=== PATIENT | male | born 1980 | race Caucasian/White ===

== ENCOUNTER → 2018-07-26 | Outpatient (CLI) | payer OTHER ==
[2015-05-04 09:35] VITALS: BP 162/85
[~2018-07-26] MED LIST: DICL75TA PO; LISI1TAB3 PO; PSYL0.5215 PO; REGADENOSON 0.4 MG/5 ML DISP.SYRIN. IV ONE; WHEA1POW5 PO
--- NOTE | 2018-07-27 09:50 | CARD ---
MR#: [id number] Date of Study: 07/27/2018 Ordering Physician: YANCI BLACKWELL, Referring Physician: YANCI BLACKWELL Tech: Nupur Bell RDCS APPROVED REPORT EXAM: Two-dimensional and M-mode echocardiogram with Doppler and color Doppler. Other Information Quality : Technically LimitedHR: 65bpm Rhythm : NSRTechnically limited study due to body habitus. INDICATION Dyspnea 2D DIMENSIONS RVDd4.0 (2.9-3.5cm)Left Atrium(2D)4.5 (1.6-4.0cm) Aortic Root(2D)3.0 (2.0-3.7cm)LVOT Diameter2.1 (1.8-2.4cm) PWd1.4 (0.7-1.1cm)IVSs2.1 (0.8-1.2cm) FS (%) 29.6 %PWs1.2 (0.8-1.2cm) SV94.3 mlLVEF(%)55.0 (>50%) M-Mode DIMENSIONS Left Atrium(MM)4.44 (2.5-4.0cm)Aortic Root3.56 (2.2-3.7cm) Aortic Valve AoV Peak Jesus.124.7cm/sAoV VTI25.1cm AO Peak GR.6.2mmHgLVOT Peak Jesus.108.7cm/s LVOT VTI 22.71cmAO Mean GR.4mmHg LEAH (VMAX)2.95lu2VWZ (VTI)3.00cm2 Mitral Valve MV E Pydbravy82.9cm/sMV DECEL DJJF530ea MV A Tqjdyina10.2cm/sMV SVE09yl E/A Ratio1.7MVA (PHT)2.84cm2 TDI E/Lateral E'5.5E/Medial E'6.2 Pulmonary Valve PV Peak Pwvginpb161.8cm/sPV Peak Grad.5mmHg Tricuspid Valve TR P. Rhgbsken444tu/sRAP NKRGPOCA1kyNh TR Peak Gr.89lgVyTSHY20ooRg Pulmonary Vein S1 Wolabhbm07.4cm/sD2 Iajzgmzf34.8cm/s LEFT VENTRICLE The left ventricle is normal size. There is moderate concentric left ventricular hypertrophy. Left ve ntricle systolic function is normal. The Ejection Fraction is 55-60%. There is normal LV segmental wa ll motion. The left ventricular diastolic function and filling is normal for age. RIGHT VENTRICLE The right ventricle is normal size. There is normal right ventricular wall thickness. The right ventr icular systolic function is normal. ATRIA The left atrium is mildly dilated. The right atrium is moderately dilated. The interatrial septum is intact with no evidence for an atrial septal defect or patent foramen ovale as noted on 2-D or Dopple r imaging. AORTIC VALVE The aortic valve is normal in structure and function. The aortic valve is trileaflet. Doppler and Col or Flow revealed no significant aortic regurgitation. There is no significant aortic valvular stenosi s. MITRAL VALVE The mitral valve is normal in structure and function. There is no evidence of mitral valve prolapse. There is no mitral valve stenosis. Doppler and Color-flow revealed trace mitral regurgitation. TRICUSPID VALVE The tricuspid valve is normal in structure and function. Doppler and Color Flow revealed trace tricus pid regurgitation. The PA pressure was estimated at 23 mmHg. There is no tricuspid valve prolapse or vegetation. There is no tricuspid valve stenosis. PULMONIC VALVE Pulmonic valve not well visualized. Doppler and Color Flow revealed no pulmonic valvular regurgitatio n. There is no pulmonic valvular stenosis. GREAT VESSELS The aortic root is normal in size. The ascending aorta is normal in size. The IVC is normal in size a nd collapses >50% with inspiration. PERICARDIAL EFFUSION There is no evidence of significant pericardial effusion. Critical Notification Critical Value: No <Conclusion> Left ventricle systolic function is normal. The Ejection Fraction is 55-60%. There is normal LV segmental wall motion. The left atrium is mildly dilated. Trace mitral regurgitation. Trace tricuspid regurgitation. The PA pressure was estimated at 23 mmHg. There is no evidence of significant pericardial effusion. Signed by : Yanci Blackwell, Electronically Approved : 07/27/2018 09:48:54
--- NOTE | 2018-07-27 11:26 | RAD ---
MR#: [id number] Date of Study: 07/27/2018 Ordering Physician: YANCI PEÑALOZA, Referring Physician: JESSICA NGUYEN Tech: Harper Vazquez RT (R) (N)ALEX Lopez, TONY (R) (N) APPROVED REPORT Test Type: Pharmacological Stress Nurse/Tech: [place] HOWARD Test Indications: Dyspnea with exertion Cardiac History: HTN, Smoker, Family Hx Medications: See EMR Medical History: See EMR Resting ECG: SR Resting Heart Rate: 74 bpm Resting Blood Pressure: 132/70mmHg Pretest Chest Pain: No chest pain Nurse/Tech Notes Lungs CTA, Heart tones regular. Consent: The procedure was explained to the patient in lay terms. Informed consent was witnessed. Sal eout was entered into Stampt. History and Stress Test performed by ALEX Lopez, TONY (R) (N) Pharm. Details Pharmacologic stress testing was performed using 0.4mg per 5ml of regadenoson given intravenously ove r 7-10 seconds. Stress Symptoms No chest pain or symptoms. POST EXERCISE Reason for Termination: Infusion complete Max HR: 96 bpm Max Blood Pressure: 136/66mmHg Chest Pain: No. Arrhythmia: Yes. Few PVCs ST Change: No. INTERPRETATION Stress EKG Conclusion: Baseline EKG showed sinus rhythm. No ischemic changes at peak stress. No arr hythmias. Imaging Protocol IMAGE PROTOCOL: Rest Tc-99m/stress Tc-99m 2 days Rest: Stress: Viability: Radiopharm.Tc99m AlcoiqnxpTr05e Sestamibi Znvl00zLb 33.1mCi Duration 15min. 15min. Img Date 07/26/2018 07/27/2018 Inj-Img [id number]. 60min. Rest Admin Site:IV - Right HandAdministrator:ALEX Lopez ARRT (R)(N) Stress Admin Site: IV - Left HandAdministrator: ALEX Lopez, TONY (R)(N) STRESS DATA End Diast. Vol.269.0mlAv. Heart Rate84.0bpm End Syst. Vol.97.0mlCO Index BSA0.0L/min Myocardial Onqa431.0gEject. Dvrycxsb25.0% Stress Rates Pk. Fill Rate3.13EDV/secLVtime Pk. Fill 74.82msec Pk. Empty Rate3.07ESV/secLVtime Pk. Yttmb724.63msec 1/3 Pk. Fill2.28EDV/sec Stress Scores Regional WT1.00Summed WT6.00 Regional WM0.00Summed WM1.00 Study quality was good. Left Ventricular size was Normal at Rest and Stress. Lung uptake was . Left Ventricular ejection fraction is 64%. The rest and stress images show normal perfusion, normal contraction and thickening. LV Perf. Quant 17 Seg. SSS1.00 17 Seg. SRS3.00 17 Seg. SDS1.00 Stress Defect Extent (% LAD)1.90Rest Defect Extent (% LAD)7.50Rev. Defect Extent (% LAD)0.60 Stress Defect Extent (% LCX) 10.00Rest Defect Extent (% LCX)3.80Rev. Defect Extent (% LCX)0.00 Stress Defect Extent (% RCA)4.40Rest Defect Extent (% RCA)12.20Rev. Defect Extent (% RCA)0.00 Stress Defect Extent (% GONZALES)5.70Rest Defect Extent (% GONZALES)8.70Rev. Defect Extent (% GONZALES)0.40 Conclusion 1. Regadenoson cardioisotope stress test did not show any evidence of ischemia or infarct. 2. Normal left ventricular systolic function with ejection fraction calculated at 64%. 3. Low risk for cardiac events. Signed by : Yanci Peñaloza, Electronically Approved : 07/27/2018 11:25:03
== END | disposition home or self-care (01) ==
LOC: NM 07:20
PROVIDERS: ATTEND Internal Medicine Cardiovascular Disease
DX: R06.09 Other forms of dyspnea (principal); I11.9 Hypertensive heart disease without heart failure; Z87.891 Personal history of nicotine dependence; Z82.49 Family history of ischemic heart disease and other diseases of the circulatory system
CPT/HCPCS: 78452; 96374; A9500; 93017; 93306; 96376; J2785

== ENCOUNTER → 2021-08-28 | Day surgery (SDC) | payer BC, OTHER ==
[~2021-08-28] VITALS: Ht 180.3 cm; Wt 200.0 kg
[~2021-08-28] MED LIST changes: +IV RINGERS,LACTATED 1000ML 1,000 ML IV SCH; -LISI1TAB3 PO; +LISI1TAB35 PO; -REGADENOSON 0.4 MG/5 ML DISP.SYRIN. IV ONE
[2021-08-28 06:49] VITALS: BP 149/66
[2021-08-28 07:53] VITALS: BP 139/57
--- NOTE | 2021-08-30 10:13 | PATHOLOGY ---
[facility] Accession Number: [id number] . 01 Material submitted: . colon - RANDOM COLON BIOPSY . 01 Clinical history: . CHRONIC DIARRHEA, HIGH BM ABDOMINAL PAIN COLONOSCOPY . 02 Diagnosis: Colonic mucosa, random colon biopsies: - No diagnostic abnormalities. . (JPM:mm; 08/29/2021) [facility] 08/29/2021 1402 Local . 02 Comment: Sections of the random colon biopsy reveal multiple segments of colonic mucosa containing several mucosal-associated lymphoid aggregates. There is no evidence of a chronic destructive colitis, lymphocytic colitis, or collagenous colitis. . (JPM:mml; 08/29/2021) . 02 Electronically signed: . Betito Nava MD, Pathologist NPI- [id number] . 01 Gross description: . The specimen is received in formalin, labeled "Reji Herr., Matt, random colon bx's". Received are multiple fragments of pale williamson tissue ranging in size from 0.2-0.5 cm in maximum dimension. The specimen is entirely submitted in cassette A1. ([facility]; 08/28/2021) NRI/NRI 08/28/20212023 Local . 02 Pathologist provided ICD-10: K52.9, R10.9 . 02 CPT . 211422 Specimen Comment: A courtesy copy of this report has been sent to [phone] Specimen Comment: Report sent to Performed at: 01 [facility] [address], [place] [id number] MD Marlon John MD Phone: [phone] Performed at: 02 [facility] [address] [place], [place] [id number] MD Betito Nava MD Phone: [phone]
== END | disposition home or self-care (01) ==
LOC: SURG 06:37
PROVIDERS: ATTEND Internal Medicine Gastroenterology
DX: K52.9 Noninfective gastroenteritis and colitis, unspecified (principal); K64.0 First degree hemorrhoids; K57.30 Diverticulosis of large intestine without perforation or abscess without bleeding; K63.89 Other specified diseases of intestine; R10.9 Unspecified abdominal pain; I10 Essential (primary) hypertension; J45.909 Unspecified asthma, uncomplicated; G47.30 Sleep apnea, unspecified; E66.9 Obesity, unspecified; M19.90 Unspecified osteoarthritis, unspecified site; F41.9 Anxiety disorder, unspecified; Z87.891 Personal history of nicotine dependence; Z72.89 Other problems related to lifestyle; Z98.890 Other specified postprocedural states
CPT/HCPCS: 45380; 88305

== ENCOUNTER 2021-12-20 08:40 | Emergency (ER) | payer BC ==
[~2021-12-20] VITALS: Ht 180.3 cm; Wt 228.8 kg
[~2021-12-20 08:40] MED LIST changes: -IV RINGERS,LACTATED 1000ML 1,000 ML IV SCH
[2021-12-20] MEDS: IV NORMAL SALINE 1000ML BAG 1,000 ML IV SCH ×2 (09:00→10:25)
[2021-12-20] MEDS ORDERED: ASPIRIN 325 MG TABLET PO ONE (09:00)
--- NOTE | 2021-12-20 09:33 | RAD ---
EXAM: Chest, single view. HISTORY: Chest pain. COMPARISON: None. FINDINGS: A frontal view of the chest is obtained. There is no infiltrate, pleural effusion or pneumo thorax. The heart is normal in size. IMPRESSION: No acute pulmonary finding. Electronically signed by: Harper Lee MD (12/20/2021 9:30 AM) [id number]
[2021-12-20 09:41] LABS: BASO # 0.1 x10^3/uL (0.0-0.2); BASO % 1 % (0-3); EOS # 0.1 x10^3/uL (0.0-0.7); EOS % 2 % (0-3); HEMATOCRIT 43.5 % (39.0-53.0); HEMOGLOBIN 14.7 g/dL (13.0-17.5); LYMPH # 1.2 x10^3/uL (1.0-4.8); LYMPH % 17 % (24-48); MEAN CORPUSCULAR HEMOGLOBIN 30 pg (25-35); MEAN CORPUSCULAR HGB CONC 34 g/dL (31-37); MEAN CORPUSCULAR VOLUME 89 fL (79-100); MONO # 0.4 x10^3/uL (0.0-1.1); MONO % 7 % (0-9); NEUT # 4.9 x10^3/uL (1.8-7.7); NEUT % 74 % (31-73); PLATELET COUNT 265 x10^3/uL (140-400); RED CELL DISTRIBUTION WIDTH 13.3 % (11.5-14.5); WHITE BLOOD COUNT 6.7 x10^3/uL (4.0-11.0)
[2021-12-20 09:44] LABS: CALCIUM 8.8 mg/dL (8.5-10.1); CREATININE 0.8 mg/dL (0.7-1.3)
[2021-12-20 09:53] LABS: ALBUMIN 3.4 g/dL (3.4-5.0); MAGNESIUM 2.2 mg/dL (1.8-2.4); TOTAL BILIRUBIN 0.5 mg/dL (0.2-1.0); TOTAL PROTEIN 6.7 g/dL (6.4-8.2)
[2021-12-20 11:04] LABS: INFLUENZA A PATIENT NEGATIVE (NEGATIVE); INFLUENZA B PATIENT NEGATIVE (NEGATIVE)
[2021-12-20 11:54] VITALS: BP 142/66
--- NOTE | 2021-12-20 12:05 | PHYS DOC ---
Past Medical History Additional Past Medical Histor: BRO Past Surgical History: Other Additional Past Surgical Histo: kidney stone removal Smoking Status: Current Every Day Smoker Alcohol Use: None Social History Narrative: rare use of marijuana General Adult EDM: Chief Complaint: CHEST PAIN HPI: HPI: Patient is a 41 year old M who presents with chest pain that started this morning at 2 AM, patient states that he has had a cough for the last week. Patient states that he did not have chest pain, to clarify he had chest tightness. Patient states that he is only had chest tightness, no chest pain. Patient had a stress test several years ago, was being followed by Dr. Blackwell cardiology. Patient has no hx of ACS. Patient has family hx of [place] in mother Review of Systems: Review of Systems: Constitutional: Denies fever or chills. [] Eyes: Denies change in visual acuity. [] HENT: Denies nasal congestion or sore throat. [] Respiratory: + cough, no shortness of breath. [] Cardiovascular: Denies chest pain or edema. +Chest tightness [] GI: Denies abdominal pain, nausea, vomiting, bloody stools or diarrhea. [] : Denies dysuria. [] Musculoskeletal: Denies back pain or joint pain. [] Integument: Denies rash. [] Neurologic: Denies headache, focal weakness or sensory changes. [] Endocrine: Denies polyuria or polydipsia. [] Lymphatic: Denies swollen glands. [] Psychiatric: Denies depression or anxiety. [] Heart Score: C/O Chest Pain: Yes HEART Score for Chest Pain: HEART Score for Chest Pain Response (Comments) Value History Slighlty/Non-Suspicious 0 ECG Normal 0 Age < 45 0 Risk Factors 1 or 2 Risk Factors 1 Troponin < Normal Limit 0 Total 1 Risk Factors: Risk Factors: DM, Current or recent (<one month) smoker, HTN, HLP, family history of CAD, obesity. Risk Scores: Score 0 - 3: 2.5% MACE over next 6 weeks - Discharge Home Score 4 - 6: 20.3% MACE over next 6 weeks - Admit for Clinical Observation Score 7 - 10: 72.7% MACE over next 6 weeks - Early Invasive Strategies Current Medications: Current Medications Medications (Trade) Dose Ordered Sig/Karsten Start Time Stop Time Status Last Admin Dose Admin Aspirin (Brii Aspirin) 325 mg 1X ONCE 12/20/21 09:00 12/20/21 09:01 DC 12/20/21 10:25 325 MG Sodium Chloride 1,000 ml @ 1,000 mls/hr Q1H 12/20/21 09:00 12/20/21 09:59 DC Allergies: Allergies: Allergies Coded Allergies Type Severity Reaction Last Updated Verified No Known Drug Allergies 08/28/21 No Physical Exam: PE: Constitutional: Well developed, well nourished, no acute distress, non-toxic appearance. [] HENT: Normocephalic, atraumatic, bilateral external ears normal, oropharynx moist, no oral exudates, nose normal. [] Eyes: PERRLA, EOMI, conjunctiva normal, no discharge. [] Neck: Normal range of motion, no tenderness, supple, no stridor. [] Cardiovascular:Heart rate regular rhythm, no murmur [] Lungs & Thorax: Bilateral breath sounds clear to auscultation [] Abdomen: Bowel sounds normal, soft, no tenderness, no masses, no pulsatile masses. [] Skin: Warm, dry, no erythema, no rash. [] Back: No tenderness, no CVA tenderness. [] Extremities: No tenderness, no cyanosis, no clubbing, ROM intact, no edema. [] Neurologic: Alert and oriented X 3, normal motor function, normal sensory function, no focal deficits noted. [] Psychologic: Affect normal, judgement normal, mood normal. [] Current Patient Data: Labs: Laboratory Tests Test 12/20/21 09:15 12/20/21 10:23 White Blood Count 6.7 x10^3/uL (4.0-11.0) Red Blood Count 4.90 x10^6/uL (4.30-5.70) Hemoglobin 14.7 g/dL (13.0-17.5) Hematocrit 43.5 % (39.0-53.0) Mean Corpuscular Volume 89 fL (79-100) Mean Corpuscular Hemoglobin 30 pg (25-35) Mean Corpuscular Hemoglobin Concent 34 g/dL (31-37) Red Cell Distribution Width 13.3 % (11.5-14.5) Platelet Count 265 x10^3/uL (140-400) Neutrophils (%) (Auto) 74 % (31-73) H Lymphocytes (%) (Auto) 17 % (24-48) L Monocytes (%) (Auto) 7 % (0-9) Eosinophils (%) (Auto) 2 % (0-3) Basophils (%) (Auto) 1 % (0-3) Neutrophils # (Auto) 4.9 x10^3/uL (1.8-7.7) Lymphocytes # (Auto) 1.2 x10^3/uL (1.0-4.8) Monocytes # (Auto) 0.4 x10^3/uL (0.0-1.1) Eosinophils # (Auto) 0.1 x10^3/uL (0.0-0.7) Basophils # (Auto) 0.1 x10^3/uL (0.0-0.2) Sodium Level 140 mmol/L (136-145) Potassium Level 4.0 mmol/L (3.5-5.1) Chloride Level 102 mmol/L (98-107) Carbon Dioxide Level 27 mmol/L (21-32) Anion Gap 11 (6-14) Blood Urea Nitrogen 9 mg/dL (8-26) Creatinine 0.8 mg/dL (0.7-1.3) Estimated GFR (Cockcroft-Gault) 106.0 BUN/Creatinine Ratio 11 (6-20) Glucose Level 109 mg/dL (70-99) H Calcium Level 8.8 mg/dL (8.5-10.1) Magnesium Level 2.2 mg/dL (1.8-2.4) Total Bilirubin 0.5 mg/dL (0.2-1.0) Aspartate Amino Transferase (AST) 18 U/L (15-37) Alanine Aminotransferase (ALT) 34 U/L (16-63) Alkaline Phosphatase 64 U/L (46-116) Troponin I High Sensitivity 6 ng/L (4-75) HZ-Gnh-V-Type Natriuretic Peptide 5 pg/mL (0-124) Total Protein 6.7 g/dL (6.4-8.2) Albumin 3.4 g/dL (3.4-5.0) Albumin/Globulin Ratio 1.0 (1.0-1.7) Lipase 61 U/L (73-393) L Influenza Type A Antigen Negative (NEGATIVE) Influenza Type B Antigen Negative (NEGATIVE) SARS-CoV-2 Antigen (Rapid) Negative (NEGATIVE) Laboratory Tests 12/20/21 09:15 Laboratory Tests 12/20/21 09:15 Vital Signs: Vital Signs Date Time Temp Pulse Resp B/P (MAP) Pulse Ox O2 Delivery O2 Flow Rate FiO2 12/20/21 10:24 80 20 132/76 (94) 97 Room Air 12/20/21 08:50 97.8 97.8 EKG: EKG: NSR [] Radiology/Procedures: Radiology/Procedures: [] Impression: Atypical chest pain, Viral URI Course & Med Decision Making: Course & Med Decision Making Pertinent Labs and Imaging studies reviewed. (See chart for details) 41-year-old male with past medical history of diabetes, obesity, presents with chest tightness. Seen and evaluated by myself, patient is stating that he has had a cough for the last week. Patient states that he feels like he has a cold. He states that he is otherwise doing well. He has no chest pain. He is actively coughing in the room. Labs and imaging all within normal limits, heart score low. Cleared for discharge, discussed findings with patient. Patient hemodynamically stable at the time of discharge. Otherwise doing well ER precautions given. Dragon Disclaimer: Dragon Disclaimer: This electronic medical record was generated, in whole or in part, using a voice recognition dictation system. Departure Departure Impression: Primary Impression: Atypical chest pain Disposition: HOME / SELF CARE / HOMELESS Condition: GOOD Patient Instructions: Chest Pain (Nonspecific), [id number] Additional Instructions: You may reach follow up with Dr Blackwell in the next week or 2 You may return to the emergency department if you are having increasing or new symptoms. FRANCINE PACKER MD December 20, 2021 12:05
--- NOTE | 2021-12-21 06:05 | EKG ---
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
--- NOTE | 2021-12-21 06:06 | EKG ---
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
== END 2021-12-20 12:07 | disposition home or self-care (01) ==
LOC: ER 08:40
DX: R07.89 Other chest pain (principal); R05.9 Cough, unspecified; F17.200 Nicotine dependence, unspecified, uncomplicated; Z20.822 Contact with and (suspected) exposure to COVID-19
CPT/HCPCS: 36415; 71045; 80053; 83690; 83735; 83880; 84484; 85025; 87428; 93005; J7030; 99285-25